=== PATIENT | female | born 1945 | race Caucasian/White ===

== ENCOUNTER 2021-06-17 09:43 | Observation (INO) ==
--- NOTE | 2021-05-13 15:16 | PAT Medication Instructions ---
Medication Instructions Date of Service May 13, 2021 Home Medications Zinc-Shaklee 1 tab PO QAM cholecalciferol (vitamin D3) 50 mcg (2,000 unit) capsule (Vitamin D3) 2,000 unit PO QAM lisinopril 20 mg tablet 10 mg PO QPM naproxen sodium 220 mg capsule (Aleve) 220 mg PO QAM PRN omega 7-qib-gvt-fish oil 1,200 mg (144 mg-216 mg) capsule (Fish Oil) 1 cap PO QAM vitamin B complex 1 cap PO QAM ASK your surgeon for instructions naproxen sodium 220 mg capsule (Aleve) 220 mg PO QAM PRN STOP taking 2 weeks before surgery omega 0-byk-hzc-fish oil 1,200 mg (144 mg-216 mg) capsule (Fish Oil) 1 cap PO QAM DO NOT take the morning of surgery Zinc-Shaklee 1 tab PO QAM cholecalciferol (vitamin D3) 50 mcg (2,000 unit) capsule (Vitamin D3) 2,000 unit PO QAM vitamin B complex 1 cap PO QAM Take evening before surgery lisinopril 20 mg tablet 10 mg PO QPM Other Notes NOTHING TO EAT OR DRINK AFTER MIDNIGHT. If you have any questions please call us at [phone] or [phone] or [phone] or [phone]
--- NOTE | 2021-05-18 12:16 | Anesthesiology Consultation ---
Date of Service May 18, 2021 Assessment & Plan (1) Encounter for pre-operative examination: - COVID screening: Per assessment on 05/18/2021: Travel screen negative, no known COVID-19 positive contacts or current COVID-19 related symptoms in past 2 weeks. Surgeon arranging preop COVID testing, scheduled 06/15/2021. Awaiting results. Chart Review Chart Review: Acceptable Risk for Surgery and Patient seen in Pre Admission Testing Teaching & Discussion Pre-Anesthesia Teaching/Discussion Notes: Instructed NPO after midnight before surgery, except medications with 15 cc of water. Medication instructions provided according to the PAT guidelines. History Surgery Operation Date: 06/17/21 07:00 Proposed Procedures p Right Total Knee Arthroplasty with Possible Stems and Possible Constrained Terese - Tomas Williamson DO Height/Weight Height: 4 ft 6 in Weight: 60.2 kg Allergies Allergy/AdvReac Type Severity Reaction Status Date / Time No Known Allergies Allergy Verified 05/13/21 12:49 Medications Home Medications Medication Instructions Recorded Confirmed Last Taken Zinc-Shaklee 1 tab PO QAM 05/13/21 05/13/21 Unknown cholecalciferol (vitamin D3) 50 2,000 unit PO QAM 05/13/21 05/13/21 Unknown mcg (2,000 unit) capsule (Vitamin D3) lisinopril 20 mg tablet 10 mg PO QPM 05/13/21 05/13/21 Unknown naproxen sodium 220 mg capsule 220 mg PO QAM PRN 05/13/21 05/13/21 Unknown (Aleve) omega 5-acw-xgg-fish oil 1,200 mg 1 cap PO QAM 05/13/21 05/13/21 Unknown (144 mg-216 mg) capsule (Fish Oil) vitamin B complex 1 cap PO QAM 05/13/21 05/13/21 Unknown Past Medical History Medical History History of COVID-19 Dx 03/12/21 ([facility]) > symptoms at time: dizziness > resolved Hypertension controlled, stable per pt Kidney stones Passed without intervention Loss of taste Loss of taste/smell since 2019 felt r/t flu > residual impairment White coat syndrome with hypertension Patient denies h/o stroke, seizures, heart attack, heart failure, DM, blood clots or blood transfusions. Exercise / Class Metabolic Activity II 4-5 Yardwork/Stairs/Walk up hill (denies CP or SOB with 1 FOS) Past Family History Family History Other No known health problems Past Surgical History Surgical History History of colonoscopy 2020 History of hysterectomy -2001 Past Anesthesia History No Hx of Anesthesia Complications and No Family Hx of Anesthesia Complications History of PONV No Hx of PONV and No Hx of Motion Sickness Social History Smoking Status: Never smoker Do You Dip or Chew Tobacco: No Hx Alcohol Use: No Hx Substance Use: No Review of Systems Snoring, denies witnessed apneas. Occasional cough if post-nasal drip. Denies change or worsening. Patient denies chest pain, shortness of breath, dyspnea on exertion, reflux, fever, chills, wheezing, or palpitations. Physical Exam Vital Signs Vitals BP 138/84 P 75 TEMP 97.6 SP02 99% on RA RESP 17 Physical Full cervical extension range of motion without pain Full TMJ range of motion TMD 3.5 finger breaths Mallampati Score 3 Dentition: intact, right upper partial-one tooth, cap/crown-not in front; denies chipped or loose teeth, implants Lungs: normal respiratory effort. Clear throughout to auscultation, no adventitious breath sounds Cardiac: regular rate and rhythm, no murmurs noted Carotid arteries: negative bruit bilat Lab Results Anesthesia Preop Results Results Anesthesia Widget: WBC 5.29 K/uL (4.8-10.8) 05/18/21 Hgb 12.9 g/dL (12.0-16.0) 05/18/21 Hct 36.6 % (37-47) L 05/18/21 Plt 281 K/uL (130-400) 05/18/21 Na 137 mmol/L (136-145) 05/18/21 K 3.7 mmol/L (3.5-5.1) 05/18/21 Cl 103 mmol/L (98-107) 05/18/21 CO2 28 mmol/L (21-32) 05/18/21 BUN 19 mg/dl (6-23) 05/18/21 Creat 0.59 mg/dl (0.6-1.2) L 05/18/21 Glucose Level 88 mg/dl (70-99(Fasting)) 05/18/21 PT 10.5 Seconds (9.0-12.0) 05/18/21 PTT 25.4 Seconds (21.0-31.0) 05/18/21 INR 1.0 (0.9-1.1) 05/18/21 HA1c 5.6 % (4.5-5.6) 05/18/21 Urine Color Dark Yellow 05/18/21 Urine Appearance Clear (Clear) 05/18/21 Urine pH 5.5 (4.5-7.5) 05/18/21 Urine Specific [place] 1.019 (1.000-1.030) 05/18/21 Urine Protein Negative (Negative) 05/18/21 Urine Glucose (UA) Negative (Negative) 05/18/21 Urine Ketones Negative (Negative) 05/18/21 Urine Blood Negative (Negative) 05/18/21 Urine Nitrite Negative (Negative) 05/18/21 Urine Bilirubin Negative (Negative) 05/18/21 Urine Urobilinogen Negative (Negative) 05/18/21 Urine Leukocyte Esterase Negative (Negative) 05/18/21 Blood Type O Positive 05/18/21 Antibody Screen NEGATIVE 05/18/21 Testing Electrocardiogram Date: 05/18/21 NSR, rate 62 bpm Chest X-Ray Date: 05/18/21 FINDINGS: Mild S-shaped scoliosis of the thoracolumbar spine. There is a moderate hiatus hernia. The heart is normal in size. The lungs are clear. Mild degenerative disc disease within the thoracic spine. No pleural effusions. No pneumothorax. IMPRESSION: 1. No acute process within the chest. 2. Moderate hiatus hernia.
--- NOTE | 2021-05-19 08:12 | History & Physical Report ---
Date of Service May 19, 2021 date of surgery: 06/17/21 Procedure: Right Total Knee Arthroplasty with Possible Stems and Possible Constrained Poly Surgeon: Dr Figueroa Williamson Assessment & Plan (1) Arthritis of right knee: Plan: Risks and benefits of procedure discussed in detail today, patient would like to proceed with a Right total knee replacement at [facility] as scheduled. will obtain medical clearance from Dr York prior to surgery as well as obtain PATs at [facility]. Will place on ASA 81mg po bid x 1 month post op, f/u 2 weeks post op for routine post-operative care and x-ray, sooner if having any problems. will make arrangements for HHPT at the time of discharge. At this point in time, has failed conservative measures and would like to proceed with surgical intervention. The risks and benefits have been discussed including, but not limited to, risk of infection, nerve injury, stiffness, loss of motion, failure to improve, etc. Reasonable outcomes and options of treatment were discussed. An explanation of appropriate alternatives to the procedure that may be advantageous were discussed and their risks and benefits, as well as the risks and benefits of not proceeding with treatment. I offered to answer any additional inquiries concerning the treatment involved. All the patient's questions were answered. The patient is agreeable, understanding of the treatment plan and alternatives, and wishes to proceed with the treatment plan. History of Present Illness Chief Complaint: Right knee pain Primary Care Provider: NO PCP Chelsey is a 75 year old female who complains of right knee pain, presents for pre-op evaluation prior to a right total knee replacement by Dr Williamson at [facility]. she complains of pain, decreased range of motion and instability in her right knee. Currently the patient states that the symptoms are moderate-severe and rated at 7/10. The pain is described as aching, sharp and throbbing. Her symptoms are aggravated by ascending stairs, daily activities, first steps while awake walking. Prior NSAIDs include Naproxen. She has been treated with previous cortisone injections, viscosupplementation as well as Zilretta injection in the past without much relief. Allergies Allergy/AdvReac Type Severity Reaction Status Date / Time No Known Allergies Allergy Verified 05/13/21 12:49 Home Medications Medication Instructions Recorded Confirmed Type Zinc-Shaklee 1 tab PO QAM 05/13/21 05/13/21 History cholecalciferol (vitamin D3) 50 2,000 unit PO QAM 05/13/21 05/13/21 History mcg (2,000 unit) capsule (Vitamin D3) lisinopril 20 mg tablet 10 mg PO QPM 05/13/21 05/13/21 History naproxen sodium 220 mg capsule 220 mg PO QAM PRN 05/13/21 05/13/21 History (Aleve) omega 5-guq-wcq-fish oil 1,200 mg 1 cap PO QAM 05/13/21 05/13/21 History (144 mg-216 mg) capsule (Fish Oil) vitamin B complex 1 cap PO QAM 05/13/21 05/13/21 History Past Med/Surg History Medical History History of COVID-19 Dx 03/12/21 ([facility]) > symptoms at time: dizziness > resolved Hypertension controlled, stable per pt Kidney stones Passed without intervention Loss of taste Loss of taste/smell since 2018 felt r/t flu > residual impairment White coat syndrome with hypertension Surgical History History of colonoscopy 2019 History of hysterectomy TOTAL-2001 Family History Other No known health problems Social History Smoking Status: Never smoker Second Hand Exposure: No; Hx Alcohol Use: No Hx Substance Use: No Preferred Language: Nigerian Communication Ability: Effective Manager Solar Required: No Beliefs That Will Affect Care: None Current Living Situation: Spouse current occupational status: retired Feels Safe at Home: Yes Assistive Devices: Denture - Upper and Glasses Review of Systems Review of Systems: All systems reviewed & are unremarkable except as noted in HPI & below Constitutional: no fever, no chills and no sweats Respiratory: no cough and no dyspnea Cardiovascular: no chest pain, no dyspnea and no orthopnea Gastrointestinal: no abdominal pain, no nausea and no vomiting Musculoskeletal: as per Subjective / HPI Physical Exam Physical Exam: HT: 4ft 6in WT: 60.2kg Constitutional: WD/WN, vitals as above no acute distress Respiratory: normal respiratory effort, lungs clear to auscultation no respiratory distress, no labored breathing and does not use accessory muscles Cardiovascular: RRR, no murmur, no edema Gastrointestinal (Abdomen): normal bowel sounds, soft, nontender, no hepatosplenomegaly Musculoskeletal: Knee: + knee abnormal to inspection (RIGHT KNEE), + effusion (+1 effusion), + limited ROM of knee (ROM 0/3/110), + knee ROM with crepitation, + joint line tenderness (medial joint line) and + Arsenio's sign positive; no deformity, no skin erythema, no ecchymosis, no valgus laxity, no varus laxity, anterior drawer test negative, Keely's sign negative and pivot shift test negative Results & Data Results & Data ([facility]) Diagnostic Findings Right Knee X-ray: Right knee series showing advanced degenerative changes to the right knee, narrowing of the lateral compartment and patello-femoral joint with patellar spurring noted, findings showing joint space narrowing, osteophyte formation and subchondral sclerosis noted. overall valgus alignment. no acute bony pathology noted.
[~2021-06-17 09:43] MED LIST: ACETAMINOPHEN 500 MG TAB PO SCH; BUPIVACAINE 0.25% 30 ML VIAL ONE; BUPIVACAINE 0.5 % 5 MG/1 ML PF 10ML VIAL ONE; CeleBREX 200 MG CAP PO SCH; DEXAMETHASONE SOD INJ 4 MG/ML VIAL ONE; EPINEPHrine INJ 1 MG/ML AMP ONE; FAMOTIDINE 20 MG TAB PO SCH; GABAPENTIN 300 MG CAP PO SCH; LR 500ML BOLUS, THEN 15ML/HR IV SCH; METOCLOPRAMIDE HCL 10 MG TABLET PO SCH; ROPIVACAINE 0.5% HCL/PF 150 MG, BUPIVACAINE 0.75% MPF 20 ML, EPINEPHrine 30MG/30ML (OR ... INSTIL SCH; TRANEXAMIC ACID 1,000 MG **IV Intra-op IV SCH; TRANEXAMIC ACID 1,000 MG **IV Pre-op IV SCH; ceFAZolin 1000MG 1,000 MG/7.5 ML SYR IV SCH; dexAMETHasone 4 MG TAB PO SCH
--- NOTE | 2021-06-17 11:49 | History & Physical Bridge Note ---
Date of Service June 17, 2021 History & Physical Bridge Note I have examined the patient, reviewed the History & Physical and in the interval since the performance of the History & Physical I have noted the following changes of clinical significance: no changes noted
[2021-06-17] MEDS ORDERED: ORTHO JOINT ANESTHETIC ONE (13:27)
[2021-06-17] MEDS ORDERED: MIDAZOLAM HCL 1 MG/ML 2ML VIAL ONE (13:30)
[2021-06-17] MEDS ORDERED: ONDANSETRON INJ 2 MG/ML 2 ML VIAL ONE (13:30)
[2021-06-17] MEDS ORDERED: LIDOCAINE 2% 2 ML VIAL/AMP(20MG/ML) INFIL ONE (13:30)
[2021-06-17] MEDS ORDERED: PROPOFOL IV EMULSION 10 MG/ML 20 ML VIAL IV ONE (13:30)
[2021-06-17] MEDS ORDERED: ONDANSETRON INJ 2 MG/ML 2 ML VIAL IV PRN ×2 (13:31→17:05)
[2021-06-17] MEDS ORDERED: ATROPINE SULFATE 0.1 MG/ML 10ML SYR IV PRN (13:31)
[2021-06-17] MEDS ORDERED: fentaNYL citrate 100 MCG/2 ML VIAL IV PRN (13:31)
[2021-06-17] MEDS ORDERED: ePHEDrine sulfate 50 MG/ML AMP IV PRN (13:31)
--- NOTE | 2021-06-17 15:27 | Operative Report ---
Post Operative Report Pre & Post Diagnosis Operation Date: 06/17/21 13:05 Pre-Op Diagnosis: Right Knee Osteoarthritis Post-Op Diagnosis: Right Knee Osteoarthritis I identified the patient and participated in the time-out.: Yes Procedure Operation Date: 06/17/21 13:05 Actual Procedures p Right Total Knee Arthroplasty(Right) utilizing Diaz & DAQRI journey 2 patient matched total knee arthroplasty size femur 3 right tibia 2 insert 12 patella 29 oval Tomas Williamson DO Surgeon Tomas Williamson DO Cleaning Team Member Malachi BHATIA Estimated Blood Loss 5 Findings Consistent with Post-Op Diagnosis Patient presents with severe end-stage DJD valgus alignment of the right knee with eburnated ldgx-ni-phod marginal osteophytes subchondral cystic changes more moderate to large effusion valgus alignment Specimens Bone and cartilage Drains Medium bore Hemovac Anesthesia Type MAC Spinal Regional Complications none Disposition Accompanied Patient To Recovery: No Disposition: Recovery Room Indications Patient presents with severe end-stage DJD of the right knee after failing attempted conservative management and physical therapy anti-inflammatories rest activity modification corticosteroid injections viscosupplementation above intraoperative findings were noted. Description of Procedure After proper prepping and draping of the Right lower extremity anterior midline incision was made over the region of the extensor extensor mechanism after meticulous hemostasis was obtained and maintained in subcutaneous tissues a medial parapatellar incision was made The patella was subluxed lateralward the medial lateral gutter were cleaned from any hypertrophic synovitis and scar tissue of the distal femoral block was placed and the distal femoral osteotomy cut was made subsequently the chamfers anterior and posterior osteotomy cuts were made utilizing the 4-in-1 block the tibia was subsequently subluxed anteriorward medial and ateral meniscal remnants were excised in their entirety remnants of the anterior and posterior cruciate ligaments were excised in their entirety excellent exposure of the proximal tibia was obtained the tibial osteotomy guide was placed on the proximal tibial osteotomy cut was made once again the knee was irrigated with copious amounts of sterile saline solution the patella was subsequently everted lateralward thickened scar tissue around the patella was removed the patella was subsequently cut utilizing a freehand technique and was drilled prepared for final preparation and placement of patella socially flexion-extension gaps were checked and the equal and symmetric trials were placed to the appropriate femoral and tibial trials with poly-spacer being placed for equal flexion and extension gaps and full range of motion including extension to 0 and flexion to 140 the trial components after having been taken to recovery range of motion was subsequently removed meticulous hemostasis was obtained and maintained subsequently a knee block injection of joint cocktail including ropivacaine 0.5% 150 mg. Bupivacaine 0.5% epinephrine 1-200,030 mL's toradol 30 mg dexamethasone 4 mg ketamine 10 mg clonidine 100 micrograms normal saline solution 30 mg was infiltrated into the soft tissues of the posterior knee medial lateral gutters and periosteal synovium special attention was paid to protect neurovascular structures at all times subsequently trial components having been removed the knee was irrigated with sterile saline solution. debris was removed the proximal tibia was subsequently prepared and was made ready for the placement of the tibial component tibial component was also cemented and tamped into position the femoral component was subsequently placed and cemented in the position the patellar component was subsequently cemented in position because hemostasis once again obtained and maintained wound having been thoroughly irrigated with debridement and debridement lavage was performed as well as a medial parapatellar incision closed with #1 Vicryl in interrupted fashion subcutaneous was closed with #2 Vicryl skin was closed with skin clips. PA-C was necessary for prepping and drapping as well as wound closure of deep fascia Sub cutaneous tissue and skin and was necessary for the case. A sterile compressive dressing was placed patient was taken to recovery in stable condition of report dictated by Clay I attest to the content of the Intraoperative Record and any orders documented therein. Any exceptions are noted below.Due to the complex nature of the procedure, the entire surgery was performed with the operational assistance of Malachi YOUNG. The studio assistant, under direct supervision, was involved in the actual performance of all aspects of the surgical procedure including hemostasis, tissue retraction and incision, instrument management, patient positioning, and wound closure. I attest to the content of the Intraoperative Record and any orders documented therein. Any exceptions are noted below.
--- NOTE | 2021-06-17 16:44 | XRay Report ---
RIGHT KNEE 2 VIEWS History: Right total knee arthroplasty. Degenerative arthritis. Postop. FINDINGS: The patient is status post a right total knee arthroplasty. The hardware is intact. No frac ture or dislocation. Surgical drains are in place. IMPRESSION: Right total knee arthroplasty. No evidence for hardware complication. ACT 112: Negative or not required by law. Electronically signed by: Franklin Silva M.D. 06/17/2021 4:43 PM
[2021-06-17] MEDS ORDERED: HYDROmorphone INJ 0.5 MG/0.5 ML SYR IV PRN (17:05)
[2021-06-17] MEDS ORDERED: MAGNESIUM HYDROXIDE SUSP 30 ML UDC PO PRN (17:05)
[2021-06-17] MEDS ORDERED: oxyCODONE HCL IR 5 MG TAB (IMMEDIATE RELEASE) PO PRN (17:05)
[2021-06-17] MEDS ORDERED: NALOXONE HCL 0.4 MG/1 ML VIAL/CARP IV PRN (17:05)
[2021-06-17] MEDS ORDERED: bisacodyL 10 MG SUPP PR PRN (17:05)
--- NOTE | 2021-06-17 17:06 | Anesthesiology Progress Note ---
Date of Service June 17, 2021 Anesthesia Post Procedure Vital Signs Vital Signs: Temp Pulse Pulse Resp BP Pulse Ox 06/17/21 16:45 36.4 C L 81 23 127/62 97 06/17/21 16:35 80 17 119/60 99 06/17/21 16:25 85 19 107/59 L 97 06/17/21 16:15 88 16 111/55 L 98 06/17/21 16:08 36.4 C L 96 H 16 122/58 L 96 06/17/21 10:20 36.4 C L 74 20 140/80 97 Transfer of Care Handoff Completed per policy Notes Mental Status: alert / awake / arousable Patient Amnestic to Procedure: Yes Nausea / Vomiting: adequately controlled Pain: adequately controlled Airway Patency, RR, SpO2: stable & adequate BP & HR: stable & adequate Hydration State: stable & adequate Neuraxial Anesthesia: was administered and sensory block is resolving Anesthetic Complications: no major complications apparent and Pt Satisfied with anesthetic care
[2021-06-17] MEDS: SODIUM CHLORIDE 0.9% 1000ML 1,000 ML IV SCH (17:24)
[2021-06-17] MEDS: ACETAMINOPHEN 500 MG TAB PO SCH (20:54)
[2021-06-17] MEDS: ceFAZolin 1000MG 1,000 MG/7.5 ML SYR IV SCH (20:54)
[2021-06-17] MEDS: ASPIRIN 81 MG ECTAB PO SCH (20:55)
[2021-06-17] MEDS: DOCUSATE SODIUM 100 MG CAP PO SCH (20:55)
[2021-06-17] MEDS ORDERED: lisinopril 10 MG TAB PO SCH (21:00)
[2021-06-17] MEDS ORDERED: SENNA 8.6 MG TAB PO SCH (21:00)
[2021-06-18] MEDS: SODIUM CHLORIDE 0.9% 1000ML 1,000 ML IV SCH (04:27)
[2021-06-18] MEDS: ACETAMINOPHEN 500 MG TAB PO SCH ×2 (05:35→14:10)
[2021-06-18] MEDS: ceFAZolin 1000MG 1,000 MG/7.5 ML SYR IV SCH (05:35)
[2021-06-18 06:08] LABS: Hematocrit (blood only) 36.8 % (37-47); Hemoglobin 12.6 g/dL (12.0-16.0); Mean Corpuscular Hemoglobin 29.2 pg (25-34); Mean Corpuscular Hgb Conc 34.2 g/dL (32-36); Mean Corpuscular Volume 85.4 fL (80-100); Mean Platelet Volume 9.5 fL (7.4-10.4); Platelet Count 267 K/uL (130-400); RDW Coefficient of Variation 13.6 % (11.5-14.5); RDW Standard Deviation 41.9 fL (36.4-46.3); Red Blood Count 4.31 M/uL (4.2-5.4); White Blood Count 11.55 K/uL (4.8-10.8)
[2021-06-18 06:34] LABS: BUN Creatinine Ratio 26.2 (10-20); Calcium 8.6 mg/dl (8.5-10.1); Est GFR (African American) 100.7 ml/min; Est GFR (Non-African American) 86.8 ml/min
[2021-06-18] MEDS: ASPIRIN 81 MG ECTAB PO SCH (08:17)
[2021-06-18] MEDS: DOCUSATE SODIUM 100 MG CAP PO SCH (08:17)
[2021-06-18] MEDS ORDERED: CHOLECALCIFEROL 1,000 UNITS 25 MCG TAB PO SCH (09:00)
[2021-06-18] MEDS ORDERED: MULTIVITAMIN TAB PO SCH (09:00)
[2021-06-18] MEDS ORDERED: VITAMIN B COMPLEX TAB PO SCH (09:00)
--- NOTE | 2021-06-18 09:11 | Orthopedic Progress Note ---
Date of Service June 18, 2021 Assessment & Plan (1) Arthritis of right knee: Plan: Postop day 1 status post right total knee arthroplasty. PT/OT protocols. Weightbearing as tolerated. DVT prophylaxis-aspirin p.o. twice daily, SCDvee, DANIEL crawford. Pain management as written. DC planning-patient is planning for home health services upon discharge. Admission and Anticipated Discharge Date Admission Date: June 17, 2021 Subjective Postop day 1 Patient is lying in her bed awake and alert. No complaints this morning. Feeling comfortable. Pain controlled. Denies shortness of breath, chest pain, lightheadedness. Physical Exam Physical Exam: Dressings are clean, dry, and intact. Calves are soft and nontender. Neurovascular is intact. Toes are mobile. She has good dorsiflexion and plantarflexion of the right foot. Hemovac drainage was 125 mL from the previous shift. Results & Data ([facility]) Vital Signs (Past 12 Hours) Vital Signs Temp Pulse Resp BP Pulse Ox 06/18/21 07:55 36.4 C L 67 16 145/74 H 97 06/17/21 22:52 36.3 C L 62 18 156/75 H 94 Laboratory Results Laboratory Results WBC 11.55 K/uL (4.8-10.8) H 06/18/21 05:27 RBC 4.31 M/uL (4.2-5.4) 06/18/21 05:27 Hgb 12.6 g/dL (12.0-16.0) 06/18/21 05:27 Hct 36.8 % (37-47) L 06/18/21 05:27 MCV 85.4 fL (80-100) 06/18/21 05:27 MCH 29.2 pg (25-34) 06/18/21 05:27 MCHC 34.2 g/dL (32-36) 06/18/21 05:27 RDW Std Deviation 41.9 fL (36.4-46.3) 06/18/21 05:27 RDW Coeff of Wilfrido 13.6 % (11.5-14.5) 06/18/21 05:27 Plt Count 267 K/uL (130-400) 06/18/21 05:27 MPV 9.5 fL (7.4-10.4) 06/18/21 05:27 Sodium 136 mmol/L (136-145) 06/18/21 05:27 Potassium 4.0 mmol/L (3.5-5.1) 06/18/21 05:27 Chloride 105 mmol/L (98-107) 06/18/21 05:27 Carbon Dioxide 23 mmol/L (21-32) 06/18/21 05:27 Anion Gap 8 (3-11) 06/18/21 05:27 BUN 17 mg/dl (6-23) 06/18/21 05:27 Creatinine 0.65 mg/dl (0.6-1.2) 06/18/21 05:27 Est Cr Clr Drug Dosing 55.0 ml/min 06/18/21 05:27 Est GFR ( Amer) 100.7 ml/min 06/18/21 05:27 Est GFR (Non-Af Amer) 86.8 ml/min 06/18/21 05:27 BUN/Creatinine Ratio 26.2 (10-20) H 06/18/21 05:27 Glucose 113 mg/dl (70-99(Fasting)) H 06/18/21 05:27 Calcium 8.6 mg/dl (8.5-10.1) 06/18/21 05:27 SARS-CoV-2, RNA, NAAT NEGATIVE (NEGATIVE) 06/17/21 10:14 Impressions Knee X-Ray 06/17/21 16:19 RIGHT KNEE 2 VIEWS History: Right total knee arthroplasty. Degenerative arthritis. Postop. FINDINGS: The patient is status post a right total knee arthroplasty. The hardware is intact. No fracture or dislocation. Surgical drains are in place. IMPRESSION: Right total knee arthroplasty. No evidence for hardware complication. ACT 112: Negative or not required by law. Electronically signed by: Franklin Silva M.D. 06/17/2021 4:43 PM
--- NOTE | 2021-06-19 15:13 | Discharge Summary ---
Date of Service June 19, 2021 Admission HPI Per Admitting Provider Chelsey is a 75 year old female who complains of right knee pain, presents for pre-op evaluation prior to a right total knee replacement by Dr Williamson at [facility]. she complains of pain, decreased range of motion and instability in her right knee. Currently the patient states that the symptoms are moderate-severe and rated at 7/10. The pain is described as aching, sharp and throbbing. Her symptoms are aggravated by ascending stairs, daily activities, first steps while awake walking. Prior NSAIDs include Naproxen. She has been treated with previous cortisone injections, viscosupplementation as well as Zilretta injection in the past without much relief. Admission Exam Per Admitting Provider Physical Exam: HT: 4ft 6in WT: 60.2kg Constitutional: WD/WN, vitals as above no acute distress Respiratory: normal respiratory effort, lungs clear to auscultation no respiratory distress, no labored breathing and does not use accessory muscles Cardiovascular: RRR, no murmur, no edema Gastrointestinal (Abdomen): normal bowel sounds, soft, nontender, no hepatosplenomegaly Musculoskeletal: Knee: + knee abnormal to inspection (RIGHT KNEE), + effusion (+1 effusion), + limited ROM of knee (ROM 0/3/110), + knee ROM with crepitation, + joint line tenderness (medial joint line) and + Arsenio's sign positive; no deformity, no skin erythema, no ecchymosis, no valgus laxity, no varus laxity, anterior drawer test negative, Keely's sign negative and pivot shift test negative Principal Diagnosis Right knee osteoarthritis Discharge Data Allergies Allergy/AdvReac Type Severity Reaction Status Date / Time No Known Allergies Allergy Verified 06/17/21 10:36 Procedures Performed Operation Date: 06/17/21 13:05 Actual Procedures p Right Total Knee Arthroplasty(Right) - Tomas Williamson DO Ordered Studies 06/17/21 05:00 US - OR guided needle placemen Routine Hospital Course (1) Arthritis of right knee: [facility], [id number] Orthopedic Progress Note Signed Patient:CHELSEY OAKLEY Admit Date:06/17/21 MR#:[id number] Att Phy:Tomas Williamson,D.O. Acct ID:[id number] [place] Phy:Baldev York M.D. Date:1945 Fam Phy: Age:75 Location:3E Sex:F Room/Bed:[facility] cc: ~ *NOTICE TO RECEIVING REPUBLICAN/AGENCY This information is strictly Confidential and protected under [place] law. [place] law prohibits you from making any further disclosure of this information unless further disclosure is expressly permitted by the written consent of the person to whom it pertains or is authorized by law. A general authorization for the release of medical or other information is not sufficient for this purpose. Hospital accepts no responsibility if the information is made available to any other person, INCLUDING THE PATIENT. Date of Service June 18, 2021 Assessment & Plan (1) Arthritis of right knee: Plan: Postop day 1 status post right total knee arthroplasty. PT/OT protocols. Weightbearing as tolerated. DVT prophylaxis-aspirin p.o. twice daily, SCDs, DANIEL hose. Pain management as written. DC planning-patient is planning for home health services upon discharge. Admission and Anticipated Discharge Date Admission Date: June 17, 2021 Subjective Postop day 1 Patient is lying in her bed awake and alert. No complaints this morning. Feeling comfortable. Pain controlled. Denies shortness of breath, chest pain, lightheadedness. Physical Exam Physical Exam: Dressings are clean, dry, and intact. Calves are soft and nontender. Neurovascular is intact. Toes are mobile. She has good dorsiflexion and plantarflexion of the right foot. Hemovac drainage was 125 mL from the previous shift. Results & Data ([facility]) Vital Signs (Past 12 Hours) Vital Signs Temp Pulse Resp BP Pulse Ox 06/18/21 07:55 36.4 C L 67 16 145/74 H 97 06/17/21 22:52 36.3 C L 62 18 156/75 H 94 Laboratory Results Laboratory Results WBC 11.55 K/uL (4.8-10.8) H 06/18/21 05:27 RBC 4.31 M/uL (4.2-5.4) 06/18/21 05:27 Hgb 12.6 g/dL (12.0-16.0) 06/18/21 05:27 Hct 36.8 % (37-47) L 06/18/21 05:27 MCV 85.4 fL (80-100) 06/18/21 05:27 MCH 29.2 pg (25-34) 06/18/21 05:27 MCHC 34.2 g/dL (32-36) 06/18/21 05:27 RDW Std Deviation 41.9 fL (36.4-46.3) 06/18/21 05:27 RDW Coeff of Wilfrido 13.6 % (11.5-14.5) 06/18/21 05:27 Plt Count 267 K/uL (130-400) 06/18/21 05:27 MPV 9.5 fL (7.4-10.4) 06/18/21 05:27 Sodium 136 mmol/L (136-145) 06/18/21 05:27 Potassium 4.0 mmol/L (3.5-5.1) 06/18/21 05:27 Chloride 105 mmol/L (98-107) 06/18/21 05:27 Carbon Dioxide 23 mmol/L (21-32) 06/18/21 05:27 Anion Gap 8 (3-11) 06/18/21 05:27 BUN 17 mg/dl (6-23) 06/18/21 05:27 Creatinine 0.65 mg/dl (0.6-1.2) 06/18/21 05:27 Est Cr Clr Drug Dosing 55.0 ml/min 06/18/21 05:27 Est GFR ( Amer) 100.7 ml/min 06/18/21 05:27 D Est GFR (Non-Af Amer) 86.8 ml/min 06/18/21 05:27 BUN/Creatinine Ratio 26.2 (10-20) H 06/18/21 05:27 Glucose 113 mg/dl (70-99(Fasting)) H 06/18/21 05:27 Calcium 8.6 mg/dl (8.5-10.1) 06/18/21 05:27 SARS-CoV-2, RNA, NAAT NEGATIVE (NEGATIVE) 06/17/21 10:14 Impressions Knee X-Ray 06/17/21 16:19 RIGHT KNEE 2 VIEWS History: Right total knee arthroplasty. Degenerative arthritis. Postop. FINDINGS: The patient is status post a right total knee arthroplasty. The hardware is intact. No fracture or dislocation. Surgical drains are in place. IMPRESSION: Right total knee arthroplasty. No evidence for hardware complication. ACT 112: Negative or not required by law. Electronically signed by: Franklin Silva M.D. 06/17/2021 4:43 PM Total Time Total Time Spent Total Time Spent (In Minutes): 5 Discharge Plan Discharge Items Patient Disposition: Home - Home Health Services Reason For Visit: Right Knee Osteoarthritis Discharge Diagnosis: Right Knee Osteoarthritis Activity: Per Instructions section Weightbearing: Right weightbearing Weightbearing Comment: as tolerated with walker Non-emergency contact: Surgeon Call non-emergency contact if: your pain is not controlled, your temperature is above 101.5, your wound has increased redness and your wound has increased drainage Follow-up/Referrals: Tomas Williamson DO [Surgeon] - (Follow up in 14 days from the day of surgery for your first check up.) Baldev York [Primary Care Provider] - Diet: Regular Addtl Attending Provider Instructions: ACTIVITY RECOMMENDATIONS: SELF CARE INSTRUCTIONS AFTER TOTAL KNEE REPLACEMENT A. You may need to continue a physical therapy program after discharge from the hospital. There are several options available to you. Your doctor will assist you in selecting the best one for you. 1. An out-patient facility 2 to 3 times a week for therapy or home therapy. 2. Continue working on all exercises taught to you in the hospital. Your goals should be to increase bending of your knee to 90 degrees and beyond and to fully straighten your knee. B. You may progress at your own pace from walking with a walker or crutches to a cane; then to no assistive devices. C. Make walking a part of your daily routine. Be up as much as comfortable with rest periods throughout the day. Rest with leg elevation is very important. Use the ice wrap frequently for the first 3-4 weeks. D. There are no restrictions on activities. You may ride in a car, shop, participate in utilization engineer and all social activities. E. Wear the long elastic stockings (DANIEL hose) 20 hours a day for 2 weeks after surgery. They can be removed several times a day for laundering and for a bath. F. You may shower, no tub baths until cleared by your doctor. SPECIAL CARE INSTRUCTIONS: VERY IMPORTANT TO READ AND REVIEW A. There are a few signs you need to watch for after you are home. Call [facility] if you notice any of the followin. Increased severe knee pain. Some pain is expected especially when you exercise. 2. Increased swelling in your leg or knee; pain or swelling of the calf muscle in either lower leg. 3. Any fluid drainage from the incision. 4. Shortness of breath or chest pain. B. Please call [facility] at if you have any concerns or questions about your operation or recovery. The doctor or his nurse will return your call promptly. C. You must take antibiotics before dental work, bladder, bowel or other surgery. Your doctor will provide you with a permanent care to carry describing this precaution. IMPORTANT: * REMEMBER TO TAKE ASPIRIN, 81 MG, TWICE DAILY FOR 4 WEEKS UNLESS OTHERWISE DIRECTED. THIS IS YOUR BLOOD THINNER. * HIGH RISK PATIENTS MAY BE PRESCRIBED A STRONGER BLOOD THINNER. THIS WILL BE PROVIDED AT DISCHARGE. * CALL IF INCREASED PAIN, REDNESS, DRAINAGE OR FEVER GREATER THAT 101. * WEAR DANIEL HOSE 20 HOURS PER DAY FOR 2 WEEKS. * OMAR Dressing - This is a large suction dressing covering your incision. This will help pull any excess drainage from the wound and allow your incision to heal properly. You may shower with this if you can keep the unit outside of the shower. If any bleeding or leakage is noted please call your doctor's office. This will remain on your incision for 7 days and then should be removed. This can be done yourself or by the home nursing staff if applicable. The entire unit is disposable once removed. Once removed, keep incision clean and dry. If redness or drainage is noted, please call your surgeon. . After your Omar dressing is removed, follow the below instructions. * DERMABOND Prineo- This is a mesh tape dressing that is covered with glue. It should remain in place until the incision is properly healed, usually 10-14 days. This dressing is designed to naturally slough off. You may trim the excess mesh tape as it peels off. Incision may be briefly wet in a shower. Dry immediately by blotting with a clean, dry towel. Do not bath or swim until instructed by your doctor. Do not scratch, rub, or pick at the dressing. Do not apply any topical ointments or lotions until dressing is completely removed and/or instructed by your doctor. There may be a small piece of suture material at one end of your incision. Do not pull or trim this. If it is bothersome or catching on clothing, you may cover it with a band-aid. FOLLOW UP VISIT: If appointment is not already scheduled: Please call [facility] to make a follow-up appointment for 2 weeks after your surgery at . Stand-Alone Forms: My [facility] [employer], Smoking Cessation Medications and DC Order Prescriptions: New aspirin 81 mg Tablet,Delayed Release (Dr/Ec) 81 mg PO BID 30 Days Qty: 60 RF: 0 acetaminophen [Tylenol Extra Strength] 500 mg Tablet 1,000 mg PO Q8 14 Days Qty: 84 RF: 0 polyethylene glycol 3350 [Miralax] 17 gram powder in packet 17 g PO DAILY PRN (Reason: constipation) Qty: 5 RF: 0 cefadroxil 500 mg capsule 500 mg PO BID Qty: 28 RF: 1 oxycodone 5 mg Tablet 5 mg PO Q4H MDD 6 PRN (Reason: pain) Qty: 30 RF: 0 Continued lisinopril 20 mg Tablet 10 mg PO QPM RF: 0 Zinc-Shaklee 1 tab PO QAM RF: 0 vitamin B complex Capsule 1 cap PO QAM RF: 0 cholecalciferol (vitamin D3) [Vitamin D3] 50 mcg (2,000 unit) Capsule 2,000 unit PO QAM RF: 0 Discontinued omega [id number] oil [Fish Oil] 1,200 (144-216) mg Capsule 1 cap PO QAM RF: 0 naproxen sodium [Aleve] 220 mg Capsule 220 mg PO QAM PRN (Reason: Pain) RF: 0 Discharge Orders: Discharge Order (Routine); Ordered 06/18/21 Ordered By: Malachi Conn Admission Data Admit Date/Time: 06/17/21 16:19 Attending Provider: Tomas Williamson Admit Provider: Tomas Williamson Primary Care Provider: Baldev York Other Interventions: Discharge Summary Assessment (RN) Last Done: 06/18/21 13:38
== END 2021-06-18 14:32 | disposition home health service (06) ==
LOC: ASU 09:43 → 3E 09:43
DX: M25.761 Osteophyte, right knee; M17.11 Unilateral primary osteoarthritis, right knee; M11.261 Other chondrocalcinosis, right knee; I10 Essential (primary) hypertension; Z79.899 Other long term (current) drug therapy